=== PATIENT | female | born 1980 | race Caucasian/White ===

== ENCOUNTER 2023-02-07 14:00 | Emergency (ER) | payer OTHER, SELFPAY ==
[2023-02-07 14:55] VITALS: BP 123/65; PULSE 71; RESP 18; TEMP 36.6; O2SAT 100; BMI 25.0
--- NOTE | 2023-02-07 15:01 | ED.GENADULT ---
HPI - General Adult General Chief complaint: General Medical Stated complaint: legs swollen Time Seen by Provider: 02/07/23 16:52 Source: patient Mode of arrival: ambulatory Limitations: no limitations History of Present Illness HPI narrative: 42 yo female with history of HTN presents to the ER for evaluation of bilateral lower extremity swelling for the last 1 week. She states he has been coming on gradually. She states her legs feel heavy. She states the swelling started in her feet and goes to her lower legs. She denies any associated shortness of breath chest pain. She denies any history of heart failure. She is not on diuretics. No calf pain or skin changes. MD complaint: leg swelling Onset (ago): week(s) (1) Location: left, right and lower extremity Radiation: proximal Severity: mild Quality: aching Pain Consistency: constant Relieving factors: rest Exacerbating factors: movement Associated symptoms: denies other symptoms Treatments prior to arrival: none Related Data Allergies Allergy/AdvReac Type Severity Reaction Status Date / Time No Known Allergies Allergy Verified 02/07/23 15:00 Review of Systems Review of Systems: Yes all other systems are reviewed and are negative [facility] Social History Social History Alcohol intake: never Smoked in Last 30 Days: No Use of substances other than those prescribed or required for medical reasons: No Advance Directives: No Advance Directives Information Provided: No Patient : No Physical Exam ED Vital Signs: Vital Signs - 24 hr 02/07/23 14:55 02/07/23 16:38 Temperature 98 F 98 F Pulse Rate 71 78 Respiratory Rate 18 19 Blood Pressure 123/65 110/58 L Pulse Oximetry 100 100 Oxygen Delivery Method Room Air Room Air BMI result Body Mass Index 25.0 Appearance: Alert. Oriented X3. No acute distress. Head: normocephalic, atraumatic. Eyes: Pupils equal, round and reactive to light. ENT: Pharynx normal. No tonsillar swelling or exudate. Neck: Normal inspection. Neck supple. CVS: Normal heart rate and rhythm. Pulses normal. Respiratory: No respiratory distress. Breath sounds normal. Abdomen: Soft and nontender. +BS x4 Skin: Skin warm and dry. Normal skin color. Normal skin turgor. No rashes. Extremities: bilateral lower extremity edema involving the feet and lower 1/3 of the legs, nonpitting. no calf tenderness. no skin changes Neuro/psych: Oriented X 3. No motor deficit. No sensory deficit. CN II-XII intact. Normal speech and cognition. Course Course Course Narrative: RME; 42 yold female presents to the ED for bilateral leg swelling for one week. patient states no chest pain, shortness of breath, recent long travel, recent surgery, or history of blood clots. positive for bilateral legs welling, but no pittting edema. negative for calf pain. labs and US ordered Medical Decision Making Medical Decision Making MDM Narrative: 42-year-old female with history of hypertension presents the ER for evaluation of bilateral lower extremity swelling for the last 1 week. No associated chest pain or shortness of breath her BNP today is normal. Her edema is nonpitting and mild. Her ultrasound was negative for DVT. At this time patient stable for discharge home decrease in salt intake, leg elevation, compression stockings. She was encouraged follow-up her primary care doctor. Return precautions were discussed. Differential Diagnosis Differential Diagnoses: The differential diagnosis associated with the presentation includes Fluid retention, venous insufficiency, DVT, cellulitis Lab Data MDM Lab Attestation statement: I reviewed the patient's lab results. Unremarkable, no anemia, no leukocytosis, normal BNP 02/07/23 15:06 02/07/23 15:06 Labs: Lab Results 02/07/23 02/07/23 02/07/23 Range/Units 15:06 15:06 15:06 WBC 5.3 (4.8-10.8) X10*3/uL RBC 4.58 (4.20-5.50) X10*6/uL Hgb 12.4 (12.0-16.0) g/dl Hct 38.7 (37.0-47.0) % MCV 84.5 (80.0-98.0) fL MCH 27.1 (27.0-33.0) pg MCHC 32.0 (31.0-35.0) g/dl RDW 14.0 (11.0-16.0) % Plt Count 238 (160-400) X10*3/uL MPV 12.2 (9.4-12.3) fL Immature Gran % (Auto) 0.2 (0.0-0.4) % Neut % (Auto) 46.7 (45-73) % Lymph % (Auto) 41.8 H (20-40) % [place] % (Auto) 8.8 (2-11) % Eos % (Auto) 2.1 (0-4) % Baso % (Auto) 0.4 (0-2) % Lymph # (Auto) 2.2 (1.2-4.9) X10*3/uL [place] # (Auto) 0.5 (0.1-1.2) X10*3/uL Eos # (Auto) 0.1 (0.0-0.4) X10*3/uL Baso # (Auto) 0.0 (0.0-0.2) X10*3/uL Abs Immat Gran (auto) 0.01 (0.00-0.03) X10*3/uL Absolute Neuts (auto) 2.5 (2.0-8.3) x10*3/uL Absolute Nucleated RBC 0.000 (0.0-0.012) X10*3/uL Nucleated RBC % (auto) 0.0 (0.0-0.2) /100WBC Sodium 136 (135-145) mmol/L Potassium 4.0 (3.3-5.1) mmol/L Chloride 105 (96-108) mmol/L Carbon Dioxide 25 (22-29) mmol/L Anion Gap 10 L (12-20) BUN 10 (9-16) mg/dL Creatinine 0.68 (0.5-1.4) mg/dL Estim Creat Clear Calc 98.9 Estimated GFR > 60 Random Glucose 84 (60-115) mg/dL Calcium 9.8 (8.4-10.2) mg/dL Total Bilirubin 0.6 (0.0-1.0) mg/dL AST 13 (5-31) U/L ALT 8 (0-31) U/L Alkaline Phosphatase 38 L (39-117) U/L B-Natriuretic Peptide 33 (<100) pg/mL Total Protein 6.9 (6.5-8.0) g/dL Albumin 4.0 (3.5-5.0) g/dL Urine Color Urine Appearance Urine pH (5.0-9.0) Ur Specific [place] (1.005-1.025) Urine Protein (Neg-Trace) mg/dL Urine Glucose (UA) (Negative) mg/dL Urine Ketones (Negative) mg/dL Urine Blood (Negative) Urine Nitrite (Negative) Ur Leukocyte Esterase (Negative) 02/07/23 Range/Units 17:27 WBC (4.8-10.8) X10*3/uL RBC (4.20-5.50) X10*6/uL Hgb (12.0-16.0) g/dl Hct (37.0-47.0) % MCV (80.0-98.0) fL MCH (27.0-33.0) pg MCHC (31.0-35.0) g/dl RDW (11.0-16.0) % Plt Count (160-400) X10*3/uL MPV (9.4-12.3) fL Immature Gran % (Auto) (0.0-0.4) % Neut % (Auto) (45-73) % Lymph % (Auto) (20-40) % [place] % (Auto) (2-11) % Eos % (Auto) (0-4) % Baso % (Auto) (0-2) % Lymph # (Auto) (1.2-4.9) X10*3/uL [place] # (Auto) (0.1-1.2) X10*3/uL Eos # (Auto) (0.0-0.4) X10*3/uL Baso # (Auto) (0.0-0.2) X10*3/uL Abs Immat Gran (auto) (0.00-0.03) X10*3/uL Absolute Neuts (auto) (2.0-8.3) x10*3/uL Absolute Nucleated RBC (0.0-0.012) X10*3/uL Nucleated RBC % (auto) (0.0-0.2) /100WBC Sodium (135-145) mmol/L Potassium (3.3-5.1) mmol/L Chloride (96-108) mmol/L Carbon Dioxide (22-29) mmol/L Anion Gap (12-20) BUN (9-16) mg/dL Creatinine (0.5-1.4) mg/dL Estim Creat Clear Calc Estimated GFR Random Glucose (60-115) mg/dL Calcium (8.4-10.2) mg/dL Total Bilirubin (0.0-1.0) mg/dL AST (5-31) U/L ALT (0-31) U/L Alkaline Phosphatase (39-117) U/L B-Natriuretic Peptide (<100) pg/mL Total Protein (6.5-8.0) g/dL Albumin (3.5-5.0) g/dL Urine Color Yellow Urine Appearance Clear Urine pH 5.5 (5.0-9.0) Ur Specific [place] 1.010 (1.005-1.025) Urine Protein Negative (Neg-Trace) mg/dL Urine Glucose (UA) Negative (Negative) mg/dL Urine Ketones Negative (Negative) mg/dL Urine Blood Negative (Negative) Urine Nitrite Negative (Negative) Ur Leukocyte Esterase Negative (Negative) Independent Interpretation I performed an independent interpretation of an: Ultrasound Interpretation: No appreciated DVT. Agree with radiologist read Radiology Impression Discussion of test interpretation with radiology: I have reviewed the radiologist's reading. Radiologist Impression: US/US venous duplex LE BI IMPRESSION: No DVT demonstrated in the bilateral lower extremity. Independent Historian Clinical information obtained from an independent historian. History obtained from or confirmed by: Other (adult daughter) Prescription Management I considered prescription management with: Other (diuretic) Chronic Conditions Patient?s care impacted by: Hypertension Critical Care Time Critical Care Time Critical Care Time: No Discharge Plan Discharge Clinical Impression: Leg edema Patient Disposition: Home, Self-Care Instructions: Leg Edema (ED) Additional Instructions: ultrasound today was negative for blood clot labs were normal recommend elevating your legs when possible decrease the salt in your diet you can also try compression socks that are knee high follow up with your doctor If you develop new or worsening symptoms call 911 or come back to the ER for further evaluation. la ecograf?a de hoy lew negativo para co?gulo de jose elias los laboratorios alma normales recomienda elevar las piernas cuando sea posible disminuye la sloane en tu dieta tambi?n puedes probar calcetines de compresi?n que lleguen hasta la rodilla seguimiento con ott m?dico Si desarrolla s?ntomas nuevos o que empeoran, llame al 911 o regrese a la martina de emergencias para len evaluaci?n adicional. Interventions: ED Discharge Assessment Last Done: 02/07/23 18:23 Discharge Date/Time: 02/07/23 18:23 Print Language: Uzbek
[2023-02-07 16:38] VITALS: BP 110/58; PULSE 78; RESP 19; TEMP 36.6; O2SAT 100
--- NOTE | 2023-02-07 17:32 | PC.NURSE ---
pt c/o leg swelling for a week and leg heaviness , denies SOB and chest pain, lung sounds clear x4. no pitting edema to lower extremities. PA in to see pt at this time.
== END 2023-02-07 18:23 | disposition home or self-care (01) ==
PROVIDERS: Emergency Provider Internal Medicine
DX: R60.0 Localized edema (principal); R06.02 Shortness of breath; Z79.899 Other long term (current) drug therapy
CPT/HCPCS: 36415; 80053; 81003; 83880; 85025; 93970; 99284